=== PATIENT | male | born 1945 | race Caucasian/White ===

== ENCOUNTER 2016-04-22 12:31 | Outpatient (CLI) | payer MEDICARE, BC | END 2016-04-22 12:32 | disposition home or self-care (01) | DX: R50.9 Fever, unspecified (principal) ==

== ENCOUNTER 2016-11-27 10:15 | Outpatient (CLI) | payer MEDICARE, BC | END 2016-11-27 10:16 | disposition home or self-care (01) | LOC: SC 10:15 | PROVIDERS: ATTEND Nurse Practitioner Family | DX: G47.10 Hypersomnia, unspecified (principal); G47.8 Other sleep disorders; R06.83 Snoring | CPT/HCPCS: 99215; G0463; 99212 ==

== ENCOUNTER 2017-01-07 19:24 | Outpatient (CLI) | payer MEDICARE, BC | END 2017-01-07 19:25 | disposition home or self-care (01) | LOC: SC 19:24 | PROVIDERS: ATTEND Internal Medicine Pulmonary Disease | DX: G47.33 Obstructive sleep apnea (adult) (pediatric) (principal); G47.61 Periodic limb movement disorder; Z68.26 Body mass index [BMI] 26.0-26.9, adult | CPT/HCPCS: 95810 ==

== ENCOUNTER 2017-11-07 08:00 | Outpatient (CLI) | payer MEDICARE, BC ==
[2017-11-07 13:01] LABS: BASOPHILS # (AUTO) 0.1 10^3/uL (0.0-0.1); BASOPHILS % (AUTO) 0.9 %; EOSINOPHILS # (AUTO) 0.2 10^3/uL (0.0-0.7); EOSINOPHILS % (AUTO) 4.1 %; HGB - HEMOGLOBIN 13.9 g/dL (14.0-18.0); LYMPHOCYTES # (AUTO) 1.4 10^3/uL (1.5-3.5); LYMPHOCYTES % (AUTO) 25.1 %; MEAN CORPUSCULAR HEMOGLOBIN 29.8 pg (27.0-31.0); MEAN CORPUSCULAR HGB CONC 33.6 g/dL (32.0-36.0); MEAN CORPUSCULAR VOLUME 88.8 fL (80.0-94.0); MEAN PLATELET VOLUME 8.6 fL (7.4-11.4); MONOCYTES # (AUTO) 0.7 10^3/uL (0.0-1.0); MONOCYTES % (AUTO) 11.9 %; NEUTROPHILS # (AUTO) 3.2 10^3/uL (1.5-6.6); PLT - PLATELET COUNT 245 10^3/uL (130-450); RED BLOOD COUNT 4.66 10^6/uL (4.70-6.10); RED CELL DISTRIBUTION WIDTH 14.3 % (12.0-15.0); WHITE BLOOD COUNT 5.5 x10^3/uL (4.8-10.8)
[2017-11-07 14:07] LABS: ALBUMIN/GLOBULIN RATIO 1.3 (1.0-2.2); ALKALINE PHOSPHATASE 51 IU/L (42-121); ALT ALANINE AMINOTRANSFERASE 21 IU/L (10-60); AST ASPARTATE AMINOTRANSFERASE 26 IU/L (10-42); BILIRUBIN,TOTAL 0.9 mg/dL (0.2-1.0); BUN - BLOOD UREA NITROGEN 20 mg/dL (6-20); CALCIUM 9.1 mg/dL (8.5-10.3); CARBON DIOXIDE - CO2 28 mmol/L (21-32); CHLORIDE 105 mmol/L (101-111); CHOL/HDL RATIO 3.6 (<5.0); CHOLESTEROL 211 mg/dL; CREATININE 1.1 mg/dL (0.6-1.2); GFR - MDRD 66 (>89); GLUCOSE 91 mg/dL (70-100); HDL CHOLESTEROL 59 mg/dL; LDL CHOLESTEROL,CALCULATED 136 mg/dL; LDL/HDL RATIO 2.3 (<3.6); SODIUM 139 mmol/L (135-145); VLDL CHOLESTEROL 16 mg/dL
== END 2017-11-07 08:01 | disposition home or self-care (01) ==
LOC: LAB.WCP 08:00
PROVIDERS: ATTEND Family Medicine
DX: I10 Essential (primary) hypertension (principal); Z12.5 Encounter for screening for malignant neoplasm of prostate
CPT/HCPCS: 36415; 80053; 80061; 84443; 85025; G0103; 83721; 84153

== ENCOUNTER 2018-09-03 14:22 | Emergency (ER) | payer MEDICARE, BC ==
[2018-09-03 15:59] LABS: BILIRUBIN,URINE NEGATIVE (NEGATIVE); GLUCOSE, URINE (UA) NEGATIVE (NEGATIVE); KETONES,URINE (UA) NEGATIVE (NEGATIVE); LEUKOCYTE ESTERASE, URINE NEGATIVE (NEGATIVE); NITRITE,URINE NEGATIVE (NEGATIVE); OCCULT BLOOD,URINE NEGATIVE (NEGATIVE); PROTEIN,URINE NEGATIVE (NEGATIVE); UROBILINOGEN,URINE 0.2 (NORMAL) E.U./dL (NORMAL)
[2018-09-03 16:00] LABS: CLARITY,URINE CLEAR (CLEAR)
--- NOTE | 2018-09-03 16:00 | ED Physician Documentation ---
PD HPI MALE - Stated complaint Stated Complaint: MALE - Chief complaint Chief Complaint: General - History obtained from History obtained from: Patient - History of Present Illness Timing - onset: How many days ago (4) Timing - duration: Days (4) Timing - details: Still present Associated symptoms: Testiclar pain PD HPI MALE CONTRIB FACTORS: Sexually active Similar symptoms before: Has not had sx before - Additional information Additional information: The patient is a 72-year-old male who presents with left testicular pain and swelling that started 4 days ago and has persisted unchanged since that time. He denies any traumatic injury. He denies fever, dysuria, abdominal pain, nausea or vomiting. He denies history of similar symptoms in the past. He is S/P vasectomy, and is monogamous with his . Review of Systems Constitutional: denies: Fever Nose: denies: Congestion Throat: denies: Sore throat Cardiac: denies: Chest pain / pressure Respiratory: denies: Dyspnea, Cough GI: denies: Abdominal Pain, Nausea, Vomiting : reports: Testicular pain. denies: Dysuria, Discharge Musculoskeletal: denies: Extremity pain Neurologic: denies: Focal weakness, Numbness, Headache PD PAST MEDICAL HISTORY - Past Medical History Past Medical History: Yes Cardiovascular: Hypertension Respiratory: None Neuro: None Endocrine/Autoimmune: None GI: None : None HEENT: None Psych: None Musculoskeletal: None Derm: None - Past Surgical History Past Surgical History: No - Present Medications Home Medications: Ambulatory Orders Medication Instructions Recorded Confirmed Cyclobenzaprine [Flexeril] 10 mg PO TID PRN #20 tablet 02/10/14 Ibuprofen [Motrin] 800 mg PO Q8H PRN #30 tablet 02/10/14 Lisinopril [Zestril] 40 mg PO DAILY 02/10/14 02/10/14 Oxycodone HCl/Acetaminophen 1 - 2 each PO Q6H PRN #14 tablet 02/10/14 [Percocet 5-325 mg Tablet] Sertraline [Zoloft] 25 mg PO DAILY 02/10/14 02/10/14 - Allergies Allergies/Adverse Reactions: Allergies Allergy/AdvReac Type Severity Reaction Status Date / Time Tetanus Vaccines and Toxoid Allergy Edema Verified 09/03/18 14:56 [Tetanus Vaccines & Toxoid] - Social History Does the pt smoke?: No Smoking Status: Former smoker Does the pt drink ETOH?: Yes ETOH Use: Wine, Liquor Does the pt have substance abuse?: No - Immunizations Immunizations are current?: No Immunizations: TDAP >10years/unknown - POLST Patient has POLST: No PD ED PE NORMAL - Vitals Vital signs reviewed: Yes (Borderline systolic hypertension.) - General General: Alert and oriented X 3, Well developed/nourished - HEENT HEENT: Atraumatic - Cardiac Cardiac: RRR - Respiratory Respiratory: No respiratory distress, Clear bilaterally - Abdomen Abdomen: Soft, Non tender - Male Male : Other (Left testicle lies higher than the right. There is tenderness to palpation, particularly at a knot on the posterior aspect. Right testicle is nontender.) - Back Back: No CVA TTP - Derm Derm: No rash - Neuro Neuro: Alert and oriented X 3, No motor deficit, Normal speech Results - Vitals Vitals: Vital Signs - 24 hr 09/03/18 09/03/18 14:51 18:46 Temperature 37 C 36.1 C L Heart Rate 74 48 L Respiratory 18 18 Rate Blood Pressure 144/73 H 140/73 H O2 Saturation 96 100 Oxygen O2 Source Room air - Labs Labs: Laboratory Tests 09/03/18 15:51 Urine Color YELLOW Urine Clarity CLEAR Urine pH 6.0 Ur Specific [place] <=1.005 Urine Protein NEGATIVE Urine Glucose (UA) NEGATIVE Urine Ketones NEGATIVE Urine Occult Blood NEGATIVE Urine Nitrite NEGATIVE Urine Bilirubin NEGATIVE Urine Urobilinogen 0.2 (NORMAL) Ur Leukocyte Esterase NEGATIVE Ur Microscopic Review NOT INDICATED Urine Culture Comments NOT INDICATED - Rads (name of study) Testicular U/S Radiology: Prelim report reviewed, EMP read contemporaneously, See rad report (1) No testicular mass or evidence of torsion. 2) Small bilateral hydroceles. 3) Borderline left varicocele.) PD MEDICAL DECISION MAKING - ED course Complexity details: reviewed results, re-evaluated patient, considered differential, d/w patient ED course: The patient's presentation is most consistent with left testicular varicocele. Testicular ultrasound reveals no evidence of testicular torsion. Epididymitis was considered, but is unlikely. I discussed with the patient the diagnosis, symptomatic treatment and outpatient follow-up, as well as potentially worrisome signs or symptoms that should prompt reevaluation in the emergency department. Departure - Departure Disposition: 01 Home, Self Care Clinical Impression: Varicocele present on ultrasound of scrotum Condition: Stable Instructions: ED Varicocele Follow-Up: Giselle Molina MD [Primary Care Provider] - Comments: Follow-up with your urologist as scheduled. Take the disc copy of your ultrasound when you go to the appointment. Return to the emergency department if you develop increasing pain or swelling of your testicle or scrotum, or otherwise worsening symptoms. Discharge Date/Time: 09/03/18 19:11
--- NOTE | 2018-09-03 18:30 | Ultrasound Report ---
Reason: left testicular pain and swelling. Procedure Date: 09/03/2018 Accession Number: [id number] / [id number] Procedure: US - Testicle w/Doppler Limited CPT Code: FULL RESULT: EXAM: SCROTAL ULTRASOUND WITH TESTICULAR DOPPLER EXAM DATE: 09/03/2018 04:31 PM. CLINICAL HISTORY: Left testicular pain and swelling. COMPARISON: None. TECHNIQUE: Real-time scanning was performed with static images obtained. Color-flow images were utilized. FINDINGS: Right: Testis: 3.9 x 1.8 x 2.9 cm. Normal size and echotexture. No mass, calcification, or abnormal blood flow. Epididymis: 6 x 0.4 x 1.2 cm. Heterogeneous in appearance. Hydrocele: Small Varicocele: None. Left: Testis: 3.6 x 2.0 x 2.8 cm. No solid mass. Blood flow appears normal. There is a small testicular cyst measuring 0.4 x 0.2 x 0.4 cm. Epididymis: 5 x 0.5 x 0.8 cm. Heterogeneous in appearance. Hydrocele: Small Varicocele: There are mildly prominent vessels in the left scrotum which measure 2.3 mm in diameter, increasing to 2.9 mm in diameter with Valsalva. IMPRESSION: 1. No testicular mass or evidence of torsion. 2. Small bilateral hydroceles. 3. Borderline left varicocele. RADIA
[2018-09-03 18:49] VITALS: BP 140/73
== END 2018-09-03 19:11 | disposition home or self-care (01) ==
LOC: ED 14:22
DX: I86.1 Scrotal varices (principal); N43.3 Hydrocele, unspecified; I10 Essential (primary) hypertension; Z87.891 Personal history of nicotine dependence
CPT/HCPCS: 76870; 81001; 81003; 87086; 93976; 99282; 99283

== ENCOUNTER 2018-10-01 11:05 | Outpatient (CLI) | payer MEDICARE, BC ==
[2018-10-01 19:07] LABS: BASOPHILS % (AUTO) 0.8 %; EOSINOPHILS # (AUTO) 0.1 10^3/uL (0.0-0.7); EOSINOPHILS % (AUTO) 2.5 %; HGB - HEMOGLOBIN 13.3 g/dL (14.0-18.0); LYMPHOCYTES # (AUTO) 1.2 10^3/uL (1.5-3.5); LYMPHOCYTES % (AUTO) 25.5 %; MEAN CORPUSCULAR HEMOGLOBIN 27.9 pg (27.0-31.0); MEAN CORPUSCULAR HGB CONC 31.1 g/dL (32.0-36.0); MEAN CORPUSCULAR VOLUME 89.9 fL (80.0-94.0); MEAN PLATELET VOLUME 10.9 fL (7.4-11.4); MONOCYTES # (AUTO) 0.6 10^3/uL (0.0-1.0); MONOCYTES % (AUTO) 12.8 %; NEUTROPHILS # (AUTO) 2.8 10^3/uL (1.5-6.6); NEUTROPHILS % (AUTO) 58.2 %; PLT - PLATELET COUNT 271 10^3/uL (130-450); RED BLOOD COUNT 4.76 10^6/uL (4.70-6.10); RED CELL DISTRIBUTION WIDTH 15.1 % (12.0-15.0); WHITE BLOOD COUNT 4.9 x10^3/uL (4.8-10.8)
[2018-10-01 19:34] LABS: ALBUMIN/GLOBULIN RATIO 1.5 (1.0-2.2); BILIRUBIN,TOTAL 0.5 mg/dL (0.2-1.0); CALCIUM 9.8 mg/dL (8.5-10.3); TOTAL PROTEIN 6.7 g/dL (6.7-8.2)
[2018-10-02 11:47] LABS: HEPATITIS B SURFACE ANTIGEN NON-REACTIVE (NON-REACTIVE); HEPATITIS C ANTIBODY NON-REACTIVE (NON-REACTIVE)
== END 2018-10-01 23:59 | disposition home or self-care (01) ==
LOC: LAB.WCP 11:05
PROVIDERS: ATTEND Physician Assistant
DX: K76.0 Fatty (change of) liver, not elsewhere classified (principal); I10 Essential (primary) hypertension
CPT/HCPCS: 36415; 80053; 85025; 86317; 86709; 86803; 87340

== ENCOUNTER 2018-10-16 12:45 | Outpatient (CLI) | payer MEDICARE, BC ==
--- NOTE | 2018-10-16 13:54 | SLEEP CARE CONSULTATION ---
Information from patient questionnaire entered by Carlyn oCok. I have reviewed and concur with the information entered by Carlyn Cook. This document represents the service I personally performed and the decisions made by me, Krista Gallegos, RN, MSN, JAIL KEEPER. History of Present Illness Previous diagnosis: Mild, Obstructive Sleep Apnea-Hypopnea Syndrome AHI: 7.9 Reason for CPAP/BiPAP follow up: annual (with oral appliance) HPI additional information: Patient was diagnosed with mild obstructive sleep apnea and chose to try an oral appliance for therapy. Initially it was hard to get used to using but the past year he has been using nightly. He has noted reduction of blood pressure by an average of 15 points. He has also noted less sleepiness symptoms as well. No change in medications except splitting dose and taking bid. He denies any tooth or jaw pain. He went to Dr Trena STINSON in [place], [place]. He uses a SomnoDent. He uses a splint to get jaw back in place but this is not easy. He has spoken to dentist with no other options discussed. However, patient has used gum and exercises that has assisted him to realign jaw in lesser time. He never made a follow up appointment here to check efficacy with a sleep study. Subjective Initial [place] Sleepiness Scale score: 14 Current [place] Sleepiness Scale score: 9 Allergies and Home Medications Known drug allergies: Yes (tetnus toxoid) Home medication list reviewed: Yes Allergy and home medication list: lisinopril 20mg tablet, po bid Felodipine - extended release 10mg tablet, 1 po qd multivitamin NEED DOSE/STRENGTH magnesium 400mg every other day Flonase nasal spray one spray each nostril am sidinifil prn Review of Systems Review of systems same as previous: No (He had a vaicocele repaired a month ago. ) Physical Exam Blood Pressure: 132/70 Heart Rate: 54 O2 Saturation: 98 Height: 178 ft 9.6 in Impression and Plan 1. Obstructive Sleep Apnea-Hypopnea Syndrome, mild but moderate supine, with good treatment compliance and good relief of sleepiness symptoms reported with his oral appliance ( mandibular advancement device). His snoring has also been reduced significantly as well. In addition he has also noted a significant decreased in blood pressure readings by 15 points. Thus he is advised to continue treatment as well as post oral appliance exercises to get his jaw back in alignment. To check efficacy of oral appliance device in reducing his AHI, I advised a polysomnography. He goes to a regular dentist as well who referred him to this dentist. Unfortunately, it was not covered by Medicare and patient paid out of pocket. Patient's apnea severity and rationale for treatment to reduce apnea, improve sleep quality and reduce cardiovascular and cerebrovascular events was reviewed. I also reviewed the benefit of controlling his apnea to his hypertension as he has noted benefit. Since his apnea is more severe in supine position as I showed him on is sleep study, he is advised to avoid supine sleep if unable to use oral appliance * Continue oral appliance * schedule polysomnography with oral appliance * Return for follow up after sleep study , or sooner if concerns arise I spent 100% of this 35 minute visit face to face with the patient with greater than 50% of this was spent time counseling the patient and coordination of care.
[2018-10-16 13:55] VITALS: BP 132/70
== END 2018-10-16 12:46 | disposition home or self-care (01) ==
LOC: SC 12:45
PROVIDERS: ATTEND Nurse Practitioner Family
DX: G47.33 Obstructive sleep apnea (adult) (pediatric) (principal)
CPT/HCPCS: 99214; G0463; 99212

== ENCOUNTER 2018-10-26 12:37 | Outpatient (CLI) | payer MEDICARE, BC ==
[2018-10-26] MEDS ORDERED: IOVERSOL 320 50 ML VIAL ONE (12:51)
[2018-10-26] MEDS ORDERED: IOVERSOL 320 100 ML VIAL IVP ONE ×2 (12:52→14:02)
[2018-10-26] MEDS ORDERED: IOVERSOL 320 50 ML VIAL PO ONE (14:02)
--- NOTE | 2018-10-28 09:58 | CT Report ---
Reason: GALLBLADDER MASS Procedure Date: 10/26/2018 Accession Number: [id number] / [id number] Procedure: CT - Abdomen/Pelvis W CPT Code: FULL RESULT: EXAM: CT ABDOMEN AND PELVIS EXAM DATE: 10/26/2018 01:59 PM. CLINICAL HISTORY: GALLBLADDER MASS. COMPARISONS: TESTICLE W/DOPPLER LIMITED 09/03/2018 4:31 PM CHEST ANGIO 02/10/2014 6:07 AM. TECHNIQUE: Routine helical CT imaging was performed through the abdomen and pelvis. IV contrast: OPTI 320 90ML. Enteric contrast: No. Reconstructions: Coronal and sagittal. In accordance with CT protocol optimization, one or more of the following dose reduction techniques were utilized for this exam: automated exposure control, adjustment of mA and/or KV based on patient size, or use of iterative reconstructive technique. FINDINGS: Lung Bases: Solid pulmonary nodule in the posterior basilar segment right lower lobe, series 3, axial image 5, measures 5 mm, unchanged. Liver: Normal. No masses. Gallbladder/Bile Ducts: Unremarkable. Spleen: Normal. Pancreas: Normal. Adrenal Glands: Normal. Kidneys: Normal. No masses or hydronephrosis. Peritoneal Cavity/Bowel: Colonic diverticulosis. The appendix is well visualized and normal. Pelvic Organs: Normal. The bladder and visualized pelvic organs are within normal limits. Vasculature: Duplicated inferior vena cava. Bones: No significant abnormality. Other: Small fat-containing umbilical hernia. IMPRESSION: 1. No gallbladder mass seen with CT. 2. Colonic diverticulosis. RADIA
== END 2018-10-26 12:38 | disposition home or self-care (01) ==
LOC: DI 12:37
PROVIDERS: ATTEND Physician Assistant
DX: K57.30 Diverticulosis of large intestine without perforation or abscess without bleeding (principal)
CPT/HCPCS: 74177; Q9967

== ENCOUNTER 2018-11-27 19:30 | Outpatient (CLI) | payer MEDICARE, BC | END 2018-11-27 19:31 | disposition home or self-care (01) | LOC: SC 19:30 | PROVIDERS: ATTEND Internal Medicine Pulmonary Disease | DX: G47.33 Obstructive sleep apnea (adult) (pediatric) (principal); G47.61 Periodic limb movement disorder | CPT/HCPCS: 95810 ==

== ENCOUNTER 2018-12-30 12:49 | Outpatient (CLI) | payer MEDICARE, BC ==
[2018-12-30 13:51] VITALS: BP 142/70
--- NOTE | 2018-12-30 13:51 | SLEEP CARE CONSULTATION ---
Information from patient questionnaire entered by Carlyn Cook. I have reviewed and concur with the information entered by Carlyn Cook. This document represents the service I personally performed and the decisions made by me, Krista Gallegos RN, MSN, POWER EQUIPMENT TECHNOLOGY INSTRUCTOR. History of Present Illness Initial [place] Sleepiness Scale score: 14 Current [place] Sleepiness Scale score: 9 Additional HPI information: WANG LANDRY returns for follow up of the recently performed polysomnography with oral appliance and informed of findings. I explained the pathophysiology behind obstructive sleep apnea. Conclusions reflected that his apnea is well controlled with his oral appliance but he does have increased apnea in supine sleep. Patient reports that he usually does not sleep on his back. Patient reports intermittent insomnia that is from waking to unknown reason or to use the bathroom and then has intermittent difficulty going back to sleep. He will stay in bed and eventually will look at clock and start thinking of things. If too long he will leave room and read until sleepy. Sleep Study - Polysomnography Polysomnography findings: The quality of the study is good. The patient had reduced sleep efficiency due to several prolonged awakenings after the sleep onset. The sleep architecture was relatively normal considering the first-night effect. Respiratory monitoring showed no significant sleep disordered breathing (AHI = 1.7) or hypoxia (vicky oxygen saturation of 90%). The few respiratory events occurred only during supine sleep (supine AHI = 10.1; non-supine = 0.00). Snore was light in intensity. There was moderate periodic leg movement of sleep not associated with sleep fragmentation. Cardiac rhythm was normal sinus rhythm without significant arrhythmia. No abnormal behavior (parasomnia) observed during the night. Allergies and Home Medications Known drug allergies: Yes (tetanus and toxoid) Home medication list reviewed: Yes (added %HTP otc bedtime and acyclovir prn / betamethazone ointment : exzema) Review of Systems Review of systems same as previous: Yes Physical Exam Blood Pressure: 142/70 Cuff size: long Heart Rate: 63 O2 Saturation: 97 Height: 5 ft 9.5 in Weight: 181 lb 12.8 oz Body Mass Index: 26.4 BMI Classification: Overweight Impression and Plan 1. Obstructive Sleep Apnea-Hypopnea Syndrome, mild, with lowest oxygen saturation of 90%, adequately controlled with the oral appliance. However, since he had some apnea noted on his back, he was advised to consider further adjustment of oral appliance if he finds himself sleeping on his back. Currently patient pleased with benefit of his oral appliance as his blood pressure has been reduced by 15 point average. The only negative part of his oral appliance is getting his jaw back in alignment. He is aware that he can transition to CPAP therapy if changes his mind on type of therapy. He can also consider positional therapy. 2. Insomnia, intermittent. - Patient will wake up intermittently and have difficulty returning to sleep. I explained how his current habit of staying in bed too long not sleeping will only increase frustration and alertness. He is instead to leave room in estimated 20 minutes or less and engage in quiet activity until sleepy. In addition, he is to cover the clock as generally knowing the time can increase anxiety about sleeping abiltiy and time left to sleep. If he is unable to sleep due to things on his mind, he is to write out concerns as a release and then read until sleepy. This process is to be repeated as often as necessary to associate the bed with sleep. If insomnia continues, then he is to reschedule a follow up appointment and complete a sleep diary for further evaluation. sleep diary if continues . 3. Periodic limb movement, moderate, that did not fragment patients sleep. Periodic limb movement of sleep (PLMS) is characterized by episodes of repetitive limb movements that occur during sleep and usually involve the lower limbs. The etiology is unknown but can be associated with restless leg syndrome (RLS), neuropathy, spinal cord diseases, kidney disease, rheumatological disorders, narcolepsy, obstructive sleep apnea, and REM sleep behavior disorder. Other factors that can increase PLMS and/or RLS are heredity and iron deficiency as reflected by a low serum ferritin level below 50 to 75mcg / L. Several medications can precipitate or aggravate PLMS such as selective serotonin re- uptake inhibitor antidepressants, tricyclic antidepressants, lithium, and dopa mine receptor antagonists with the exception of bupropion. Caffeine can also aggravate PLMS and should be avoided. Sleep hygiene methods can also improve sleep as well as lifestyle changes such as regular exercise. Patient notes increased leg leg movements if sits too long but have diminished significantly with stretches and use of magnesium. Patient was advised that no treatment is needed at this time. If symptoms increase, then further evaluation is indicated. * Continue oral appliance * If finds he is on his back more in sleep - consider further adjustment * sleep diary and follow up if continued insomnia. * Follow up with PCP if PLMS worsen. * Attempt to lose weight * Return for follow up in 1 year , or sooner if concerns arise I spent 100% of this 35 minute visit face to face with the patient with greater than 50% of this was spent time counseling the patient and coordination of care.
== END 2018-12-30 12:50 | disposition home or self-care (01) ==
LOC: SC 12:49
PROVIDERS: ATTEND Nurse Practitioner Family
DX: G47.33 Obstructive sleep apnea (adult) (pediatric) (principal); G47.00 Insomnia, unspecified; G47.61 Periodic limb movement disorder
CPT/HCPCS: 99214; G0463; 99212

== ENCOUNTER 2019-01-02 12:04 | Outpatient (CLI) | payer MEDICARE, BC | END 2019-01-02 12:05 | disposition home or self-care (01) | LOC: RT 12:04 | PROVIDERS: ATTEND Internal Medicine Gastroenterology | DX: I10 Essential (primary) hypertension (principal) | CPT/HCPCS: 93005 ==

== ENCOUNTER 2019-01-14 09:06 | Day surgery (SDC) | payer MEDICARE, BC ==
[2019-01-14] MEDS ORDERED: LACTATED RINGERS 1,000 ML IV ONE (09:16)
[2019-01-14] MEDS ORDERED: MIDAZOLAM 2 MG/2 ML VIAL IVP ONE (10:03)
[2019-01-14] MEDS ORDERED: fentaNYL 250 MCG/5 ML VIAL IVP ONE (10:03)
[2019-01-14 11:11] VITALS: BP 123/59
== END 2019-01-14 09:07 | disposition home or self-care (01) ==
LOC: SDS 09:06
PROVIDERS: ATTEND Internal Medicine Gastroenterology
PROC: 0DJD8ZZ Inspection of Lower Intestinal Tract, Via Natural or Artificial Opening Endoscopic (ICD-10-PCS; principal; 2019-01-14 10:30)
DX: R19.5 Other fecal abnormalities (principal); K57.30 Diverticulosis of large intestine without perforation or abscess without bleeding
CPT/HCPCS: 45378; J3010; J7120

== ENCOUNTER 2019-09-17 15:46 | Outpatient (CLI) | payer MEDICARE ==
--- NOTE | 2019-09-17 17:32 | XRAY Report ---
PROCEDURE: Clavicle LT INDICATIONS: LEFT CLAVICLE LT SHOULDER PAIN TECHNIQUE: 2 views of the clavicle were acquired. COMPARISON: None. FINDINGS: Bones: No fractures or dislocations. No suspicious bony lesions. Soft tissues: No suspicious soft tissue calcifications. IMPRESSION: No trauma found, source of pain is not seen. Reviewed by: Aniket Stark MD on 09/17/2019 5:31 PM PDT Approved by: Aniket Stark MD on 09/17/2019 5:31 PM PDT Station ID: [id number]
--- NOTE | 2019-09-17 17:33 | XRAY Report ---
PROCEDURE: Shoulder 2 View LT INDICATIONS: LEFT CLAVICLE LT SHOULDER PAIN TECHNIQUE: 2 views of the shoulder were acquired. COMPARISON: Clavicle plain film same day.. FINDINGS: Bones: No fractures or dislocations. No suspicious bony lesions. Visualized ribs appear intact. Soft tissues: No suspicious soft tissue calcifications. IMPRESSION: No trauma found. Reviewed by: Aniket Stark MD on 09/17/2019 5:32 PM PDT Approved by: Aniket Stark MD on 09/17/2019 5:32 PM PDT Station ID: [id number]
== END 2019-09-17 15:47 | disposition home or self-care (01) ==
LOC: DI 15:46
PROVIDERS: ATTEND Family Medicine
DX: M25.512 Pain in left shoulder (principal)

== ENCOUNTER 2019-11-10 08:49 | Outpatient (CLI) | payer MEDICARE ==
[2019-11-10 09:32] VITALS: BP 140/60
--- NOTE | 2019-11-10 09:32 | SLEEP CARE CONSULTATION ---
Information from patient questionnaire entered by Carlyn Cook. I have reviewed and concur with the information entered by Carlyn Cook. This document represents the service I personally performed and the decisions made by me, Krista Gallegos, RN, MSN, SURFACE ROOM SHOP OPTICIAN. History of Present Illness Service Date and Time: 11/10/2019 0849 Previous diagnosis: Mild, Obstructive Sleep Apnea-Hypopnea Syndrome AHI: 7.9 (in 2017) Reason for follow up: other (10 month with oral appliance) Prior sleep studies: Yes Year and Where: 2014, 2016 and 2019 - [facility] Type of Sleep Study: Polysomnography HPI additional information: He continues to use an oral appliance and feels more rested with use. The oral appliance is starting to irritate his gums. He saw his dentist and it was adjusted a year ago with no benefit. He also uses a bite block due to clenching his teeth. His choice for use of an oral appliance was due to concerns for 's sleep as he felt a CPAP would be too noisey due to her light sleep habits. Since then she has been put on a Trilogy to lung condition and sleeping much better. Thus he would now like to pursue a CPAP to control his apnea as the oral appliance is no longer comfortable. Thus, I will change his treatment to CPAP to see if this works better for him in comfort and relief of sleepiness symptoms. Currently he is more rested with oral appliance but shows mild fatigue by [place] of 13 and patient admits to dozing in front of computer. I explained how CPAP machine works with sample devices Respironics Dreamstation and ResMobiliBuy [id number] and what to expect when using the machine. Using CPAP every night in order to get used to it was emphasized. Patient advised to put CPAP mask on before getting into bed so as not to fall asleep without CPAP. To assist acclimation to CPAP use, it could also be used for a short time during day while reading or watching TV. The patient was instructed to call the CPAP supplier to discuss any mechanical problem that may occur. If the mask given is uncomfortable or is difficult to keep on through the night even with adjustment, contact the CPAP supplier as many will replace with another mask style if notified before 30 days. If snoring or perceives is not getting enough air or too much air from the machine, notify this office. [facility] patient education PAP tips. Patient counseled not drink alcohol less than 4 hours before bedtime as it can increase snoring and apnea. Patient was cautioned about risks of drowsy driving until sleepiness symptoms resolve. Patient denies drowsy driving. Sleep Study - Results Polysomnography/Home Sleep Study results: 2016 diagnostic sleep study: Sleep efficiency was slightly reduced due to a prolonged awakening in the second half of the night. Sleep architecture was relatively normal as well considering the first night effect. Respiratory monitoring showed mild obstructive sleep apnea (AHI of 7.9) associated with oxyhemoglobin desaturation and mild hypoxemia (vicky oxygen saturation of 84%) but not sleep fragmentation. The respiratory events occurred mainly during supine sleep (supine AHI = 26.7; non-supine AHI = 5.8). Snore was moderate to loud in intensity. There was severe periodic limb movement of sleep not associated with sleep fragmentation. Cardiac rhythm was normal sinus rhythm without significant arrhythmia. No abnormal behavior (parasomnia) observed during the night. Subjective Initial [place] Sleepiness Scale score: 14 (in 2015) Current [place] Sleepiness Scale score: 13 Allergies and Home Medications Known drug allergies: Yes Home medication list reviewed: Yes (same blood pressure medications) Review of Systems Review of systems same as previous: Yes Physical Exam Blood Pressure: 140/60 Cuff size: regular Heart Rate: 55 O2 Saturation: 98 Height: 5 ft 9 in Weight: 176 lb Body Mass Index: 25.9 BMI Classification: Overweight Impression and Plan 1. Obstructive Sleep Apnea-Hypopnea Syndrome, mild, currently treated with an oral appliance which has become uncomfortable to use despite adjustment. He is more rested with use of oral appliance but still has some daytime fatigue/ sleepiness symptoms. He would like to try CPAP now for treatment of his apnea. As mentioned above, the patient will be started on nasal autoCPAP therapy with pressure set at 4-15 cmH2O. A manual titration study will be completed if unable to find optimal treatment pressure with office adjustments. Compliance guidelines also reviewed. A copy of compliance guidelines will be given for reference at check out. Because the apnea is more severe supine, I instructed to avoid sleeping supine using pillow positioning if unable to use oral appliance until he obtains his CPAP. * Nasal auto CPAP therapy, pressure at 4-15 cm H2O. * Attempt to lose weight. * Avoid alcohol consumption near bedtime. * The patient is again cautioned about driving until sleepiness completely resolves. * Return one month after CPAP obtained. I will assess response to therapy and compliance at that time. Visit Type: In Office Time Spent with Patient (minutes): 32 Provider Statement: I spent 100% of the Face to Face Visit with the patient with greater than 50% spent counseling the patient and coordination of care.
== END 2019-11-10 08:50 | disposition home or self-care (01) ==
LOC: SC 08:49
PROVIDERS: ATTEND Nurse Practitioner Family
DX: G47.33 Obstructive sleep apnea (adult) (pediatric) (principal); E66.3 Overweight; Z68.25 Body mass index [BMI] 25.0-25.9, adult
CPT/HCPCS: 99214; G0463; 99212

== ENCOUNTER 2020-03-30 15:33 | Outpatient (CLI) | payer MEDICARE ==
[2020-03-30 18:09] LABS: BASOPHILS # (AUTO) 0.1 10^3/uL (0.0-0.1); BASOPHILS % (AUTO) 0.9 %; EOSINOPHILS # (AUTO) 0.1 10^3/uL (0.0-0.7); EOSINOPHILS % (AUTO) 1.4 %; HGB - HEMOGLOBIN 13.4 g/dL (14.0-18.0); LYMPHOCYTES # (AUTO) 1.5 10^3/uL (1.5-3.5); MEAN CORPUSCULAR HEMOGLOBIN 29.1 pg (27.0-31.0); MEAN CORPUSCULAR HGB CONC 31.8 g/dL (32.0-36.0); MEAN CORPUSCULAR VOLUME 91.5 fL (80.0-94.0); MEAN PLATELET VOLUME 10.6 fL (7.4-11.4); MONOCYTES # (AUTO) 0.5 10^3/uL (0.0-1.0); MONOCYTES % (AUTO) 9.5 %; NEUTROPHILS # (AUTO) 3.5 10^3/uL (1.5-6.6); PLT - PLATELET COUNT 284 10^3/uL (130-450); RED CELL DISTRIBUTION WIDTH 13.8 % (12.0-15.0); WHITE BLOOD COUNT 5.7 x10^3/uL (4.8-10.8)
[2020-03-30 19:08] LABS: ALBUMIN 4.1 g/dL (3.2-5.5); ALBUMIN/GLOBULIN RATIO 1.4 (1.0-2.2); ALKALINE PHOSPHATASE 49 IU/L (42-121); ALT ALANINE AMINOTRANSFERASE 20 IU/L (10-60); AST ASPARTATE AMINOTRANSFERASE 22 IU/L (10-42); BILIRUBIN,TOTAL 0.5 mg/dL (0.2-1.0); BUN - BLOOD UREA NITROGEN 21 mg/dL (6-20); CALCIUM 9.5 mg/dL (8.5-10.3); CARBON DIOXIDE - CO2 30 mmol/L (21-32); CHLORIDE 103 mmol/L (101-111); CHOL/HDL RATIO 3.6 (<5.0); CHOLESTEROL 237 mg/dL; CREATININE 1.1 mg/dL (0.6-1.2); GLUCOSE 102 mg/dL (70-100); HDL CHOLESTEROL 66 mg/dL; LDL CHOLESTEROL,CALCULATED 149 mg/dL; LDL/HDL RATIO 2.3 (<3.6); VLDL CHOLESTEROL 22 mg/dL
== END 2020-03-30 23:59 | disposition home or self-care (01) ==
LOC: LAB.WCP 15:33
PROVIDERS: ATTEND Family Medicine
DX: I10 Essential (primary) hypertension (principal)
CPT/HCPCS: 36415; 80053; 80061; 83721; 85025

== ENCOUNTER 2022-03-16 10:21 | Outpatient (CLI) | payer MEDICARE ==
[2022-03-16 10:41] LABS: BASOPHILS % (AUTO) 0.8 %; EOSINOPHILS # (AUTO) 0.2 10^3/uL (0.0-0.7); EOSINOPHILS % (AUTO) 3.1 %; HCT - HEMATOCRIT 44.3 % (42.0-52.0); HGB - HEMOGLOBIN 14.1 g/dL (14.0-18.0); LYMPHOCYTES # (AUTO) 1.6 10^3/uL (1.5-3.5); LYMPHOCYTES % (AUTO) 30.2 %; MEAN CORPUSCULAR HGB CONC 31.8 g/dL (32.0-36.0); MEAN CORPUSCULAR VOLUME 87.9 fL (80.0-94.0); MONOCYTES # (AUTO) 0.6 10^3/uL (0.0-1.0); MONOCYTES % (AUTO) 11.2 %; NEUTROPHILS # (AUTO) 2.8 10^3/uL (1.5-6.6); NEUTROPHILS % (AUTO) 54.3 %; PLT - PLATELET COUNT 255 10^3/uL (130-450); RED BLOOD COUNT 5.04 10^6/uL (4.70-6.10); RED CELL DISTRIBUTION WIDTH 13.8 % (12.0-15.0); WHITE BLOOD COUNT 5.2 x10^3/uL (4.8-10.8)
[2022-03-16 11:07] LABS: ALBUMIN/GLOBULIN RATIO 1.3 (1.0-2.2); ALKALINE PHOSPHATASE 49 IU/L (42-121); ALT ALANINE AMINOTRANSFERASE 20 IU/L (10-60); AST ASPARTATE AMINOTRANSFERASE 22 IU/L (10-42); BUN - BLOOD UREA NITROGEN 20 mg/dL (6-20); CALCIUM 9.3 mg/dL (8.5-10.3); CARBON DIOXIDE - CO2 29 mmol/L (21-32); CHLORIDE 101 mmol/L (101-111); CHOL/HDL RATIO 4.9 (<5.0); CHOLESTEROL 230 mg/dL; GFR - MDRD 72 (>89); GLUCOSE 102 mg/dL (70-100); HDL CHOLESTEROL 47 mg/dL; LDL CHOLESTEROL,CALCULATED 170 mg/dL; LDL/HDL RATIO 3.6 (<3.6); POTASSIUM 4.6 mmol/L (3.5-5.0); SODIUM 137 mmol/L (135-145); TOTAL PROTEIN 7.1 g/dL (6.7-8.2); TRIGLYCERIDES 66 mg/dL; VLDL CHOLESTEROL 13 mg/dL
== END 2022-03-16 10:22 | disposition home or self-care (01) ==
LOC: LAB 10:21
PROVIDERS: ATTEND Physician Assistant
DX: I10 Essential (primary) hypertension (principal); E78.5 Hyperlipidemia, unspecified; G25.81 Restless legs syndrome; R39.9 Unspecified symptoms and signs involving the genitourinary system
CPT/HCPCS: 36415; 80053; 80061; 82728; 83721; 84153; 85025

== ENCOUNTER 2022-10-26 15:21 | Outpatient (CLI) | payer MEDICARE ==
[2022-10-26 15:57] LABS: BUN - BLOOD UREA NITROGEN 17 mg/dL (6-20); CALCIUM 9.4 mg/dL (8.5-10.3); CARBON DIOXIDE - CO2 30 mmol/L (21-32); CHLORIDE 102 mmol/L (101-111); CHOL/HDL RATIO 2.3 (<5.0); CHOLESTEROL 119 mg/dL; CREATININE 1.1 mg/dL (0.6-1.3); GFR - MDRD 65 (>89); GLUCOSE 88 mg/dL (74-104); HDL CHOLESTEROL 51 mg/dL; LDL CHOLESTEROL,CALCULATED 47 mg/dL; LDL/HDL RATIO 0.9 (<3.6); POTASSIUM 3.8 mmol/L (3.5-4.5); SODIUM 136 mmol/L (135-145); TRIGLYCERIDES 104 mg/dL (48-352); URIC ACID 6.1 mg/dL (4.4-7.6); VLDL CHOLESTEROL 21 mg/dL
== END 2022-10-26 15:22 | disposition home or self-care (01) ==
LOC: LAB 15:21
PROVIDERS: ATTEND Physician Assistant
DX: E78.5 Hyperlipidemia, unspecified (principal); M25.473 Effusion, unspecified ankle
CPT/HCPCS: 36415; 80048; 80061; 83721; 84550

== ENCOUNTER 2023-03-22 09:06 | Outpatient (CLI) | payer MEDICARE ==
--- NOTE | 2023-03-22 09:54 | Sleep Patient Instructions ---
Sleep Center Visit Summary - Patient Visit Information Reason for Visit: Initial consultation - Patient Instructions Additional Instructions: You will continue with CPAP therapy with pressure set at 4-15 cmH2O. A supply prescription will be updated with your DME and I have added an order to replace your current machine. Please call us to schedule your compliance visit once you have your new CPAP. We encourage you to continue to try to lose weight. Please follow up with the sleep care office one month after obtaining new device. - Clinic Information Contact: [facility] [address] [place] [address] [email or web address] T: [phone]
--- NOTE | 2023-03-22 09:58 | SLEEP CARE CONSULTATION ---
Information from patient questionnaire entered by Winnie Roblero. I have reviewed and concur with the information entered by Winnie Roblero. This document represents the service I personally performed and the decisions made by me, Era Silver ARNP. History of Present Illness Service Date and Time: 03/22/2023 09 Reason for Visit: New patient, Previously diagnosed sleep apnea, Re-establish care Chief Complaint: reports: Other (UPDATE SUPPLIES) Usual bedtime: 11AM Time it takes to fall asleep: 5-10MIN 1-2 X MONTH DIFFICULT Snores at night: Yes Observed to quit breathing while asleep: Yes Sleeps alone due to snoring: No Number of times waking at night: 1-3 Reasons for waking at night: reports: Bathroom Toss, Turn, or Twitch while sleeping: Yes Recalls having dreams: Yes Usually gets out of bed at: 8AM Morning headache: No Sleepy or fatigued during the day: Yes Ever fallen asleep while driving: No Prior sleep studies: Yes Year and Where: 2014, 2016 and 2018 - [facility] Additional HPI information: WANG LANDRY was previously diagnosed to have mild, AHI 7.9, obstructive sleep apnea-hypopnea syndrome in 2017 at [facility] and comes in today to re-establish care for CPAP therapy. - Parasomnia Symptoms Ever been unable to move upon waking from sleep: No Walks in sleep: No Talks in sleep: No Ever acted out dreams in sleep: Yes Ever felt weak in the knees when startled or emotional: No Problems with memory or concentration: No CPAP Compliance Data - Data Reviewed with Patient Average duration of nightly device use: 7 hours 5 minutes Compliance rate %: 83.2 (161/185 days used) Current pressure setting (cmH2O): 4-15 (median 6.1, avg 8.2, max 13.9) Average residual AHI: 2.8 Average large leak: 38 secs Compliance data discussion: He as a Dreamstation that has not been replaced. He is using [employer] for his supplies. He is using a ResMed AirFit P30i, large cushion. He does not have a backup mask at this time. Subjective Patient concerns: reports: dry mouth, nose, throat (dry mouth occasionally). denies: aerophagia, mask discomfort, air blowing in eyes, mask leak noise, condensation in mask/hose, nasal congestion, epistaxis Observed to snore while using device: No Current pressure setting perceived as: comfortable On therapy, patient: reports: sleeping better, awakening more refreshed, being more awake and alert during the day, more rested overall, drowsiness while driving (occasional on long trips; no accidents or tuan drifting) Initial [place] Sleepiness Scale score: 14 (in 2015) Current [place] Sleepiness Scale score: 10 (03/22/23) Past Medical History Past Medical History: reports: Hypertension, Other (ECZAMA, PSORIASIS ) Social History The patient's occupation is a RE. Patient is and lives in [place]. Have you smoked in the past 12 months: No Cigarettes per day (20/pack): 10 Years of smokin Quit date: 1992 Smoking Pack Years: 12.5 Alcohol use: Yes Alcohol amount and frequency: 1-2 BEER DAILY Caffeine use: Yes Caffeine amount and frequency: 2-4 CUPS DAILY Family History Family history of sleep disordered breathing: Yes Family Hx Sleep Apnea: Father: Snoring, Grandparent: Snoring Allergies and Home Medications Known drug allergies: Yes ( LISTED) Drug allergies reviewed: Yes Home medication list reviewed: Yes (as listed) Allergy and home medication list: Allergies Tetanus Vaccines and Toxoid [Tetanus Vaccines & Toxoid] Allergy (Verified 03/21/23 10:45) Edema Home Medications Medication Instructions Recorded Confirmed Last Taken Type Lisinopril [Zestril] 20 mg PO BID 02/10/14 03/21/23 01/13/19 History Felodipine [Felodipine ER] 10 mg PO QPM 01/13/19 03/21/23 01/13/19 History Betamethasone Aug 0.05% Cream See Rx Instructions .ROUTE .COMPLEX 03/21/23 03/21/23 Unknown History [Diprolene AF 0.05% Cream] Gabapentin [Neurontin] See Rx Instructions .ROUTE .COMPLEX 03/21/23 03/21/23 Unknown History Rosuvastatin Calcium [Crestor] See Rx Instructions .ROUTE .COMPLEX 03/21/23 03/21/23 Unknown History Tazarotene See Rx Instructions .ROUTE .COMPLEX 03/21/23 03/21/23 Unknown History Review of Systems Cardiovascular: reports: high blood pressure Ear/Nose/Throat: reports: wisdom teeth removed Musculoskeletal: reports: muscle pain or cramping Immunologic: reports: sneezing, rash Physical Exam Vital signs obtained and entered by: BOGDAN GENAO Blood Pressure: 139/78 Cuff size: regular (left arm) Heart Rate: 64 O2 Saturation: 97 Height: 5 ft 9 in Weight: 180 lb 9.6 oz Body Mass Index: 26.6 BMI Classification: Overweight Heart: regular rate and rhythm, murmur Lungs: clear bilaterally Impression and Plan 1. Obstructive Sleep Apnea-Hypopnea Syndrome, mild, with good treatment compliance and good apnea control. On CPAP therapy, the patient has better sleep quality and is more rested overall. Patient states he has a DreamStation that they were supposed to replace but he has not heard from [facility] about any replacement. He is eligible for a new device since his last replacement was over 5 years ago. The patients CPAP is over 5 years old and of reasonable use. Thus, the CPAP will be updated. The new CPAPs also have a better humidity system which could assist control of patients dryness symptoms. A DWO prescription will be made. Compliance guidelines for new device and follow up discussed. Patient's apnea severity and rationale for treatment to reduce apnea, improve sleep quality and reduce cardiovascular and cerebrovascular events was reviewed. I also reviewed the benefit of consistent device use of CPAP for hypertension. 2. Overweight, unspecified. Currently patients BMI is 26.6. Obesity increases the risk of apnea, CPAP pressure requirements and overall health risks especially cardiovascular and diabetes. Thus patient is advised maintain a healthy weight. * Continue auto CPAP pressure at 4-15 cmH2O * Update machine * Update supply prescription * Notify me if snoring with mask or feeling that the pressure is too much or too little * Attempt to lose weight * Call this office if any problems using CPAP * Return for follow up one month after obtaining new CPAP, or sooner if concerns arise Counseling Topics: Weight loss health impact Prescriptions: Auto CPAP, Device supplies Follow up with Sleep Care in: other (compliance visit) Visit Type: In Office Time Spent with Patient (minutes): 33 Provider Statement: I spent 100% of the Face to Face Visit with the patient with greater than 50% spent counseling the patient and coordination of care.
[2023-03-22 10:04] VITALS: BP 139/78; O2SAT 97
== END 2023-03-22 09:07 | disposition home or self-care (01) ==
LOC: SC 09:06
PROVIDERS: ATTEND Nurse Practitioner Family
DX: G47.33 Obstructive sleep apnea (adult) (pediatric) (principal); E66.3 Overweight; Z68.26 Body mass index [BMI] 26.0-26.9, adult
CPT/HCPCS: 99203; G0463; 99212

== ENCOUNTER 2023-05-25 14:32 | Outpatient (CLI) | payer MEDICARE ==
--- NOTE | 2023-05-25 14:55 | SLEEP CARE CONSULTATION ---
Information from patient questionnaire entered by Leny Roblero. I have reviewed and concur with the information entered by Leny Roblero. This document represents the service I personally performed and the decisions made by me, Era Silver ARNP. History of Present Illness Service Date and Time: 05/25/2023 1440 Previous diagnosis: Mild, Obstructive Sleep Apnea-Hypopnea Syndrome AHI: 7.9 (in 2016) Reason for follow up: first compliance after device update Equipment type: CPAP (RESMED NEED MACHINE) Equipment obtained from: [address] [address] (getting supplies) Mask style: Nasal pillows Mask brand: Resmed Backup mask available: Yes Last cushion change: rotating through 3 cushions; 1 month Prior sleep studies: Yes Year and Where: 2014, 2016 and 2018 - [facility] HPI additional information: WANG LANDRY was diagnosed to have mild, AHI 7.9, obstructive sleep apnea- hypopnea syndrome and returned today for CPAP therapy first compliance after updating device follow-up. Sleep Study - Results Prior sleep studies: Yes Year and Where: 2014, 2016 and 2018 - [facility] Compliance Data - Data Reviewed with Patient Average duration of nightly device use: 6 hours 44 minutes Compliance rate %: 97 (/30 days used) Current pressure setting (cmH2O): 4-15 (median 6.3, avg 8.8, max 10.4) Average residual AHI: 3.5 Central apnea: 2.3 Obstructive apnea: 0.9 Hypopnea: 0.2 Average large leak: 1 L/min Subjective Patient concerns: denies: aerophagia, mask discomfort, air blowing in eyes, mask leak noise, condensation in mask/hose, nasal congestion, dry mouth, nose, throat, epistaxis Observed to snore while using device: No Current pressure setting perceived as: comfortable On therapy, patient: reports: sleeping better, awakening more refreshed, being more awake and alert during the day, more rested overall. denies: drowsiness while driving Initial [place] Sleepiness Scale score: 14 (in 2014) Current [place] Sleepiness Scale score: 10 (05/25/23) Allergies and Home Medications Known drug allergies: Yes (as listed) Drug allergies reviewed: Yes Home medication list reviewed: Yes (no changes) Allergy and home medication list: Allergies Tetanus Vaccines and Toxoid [Tetanus Vaccines & Toxoid] Allergy (Verified 05/23/23 11:23) Edema Review of Systems Review of systems same as previous: Yes (no change) Physical Exam Vital signs obtained and entered by: LENY Juan MA Blood Pressure: 129/68 (right arm) Cuff size: regular Heart Rate: 61 O2 Saturation: 97 Height: 5 ft 9 in Weight: 177 lb Body Mass Index: 26.1 BMI Classification: Overweight Impression and Plan 1. Obstructive Sleep Apnea-Hypopnea Syndrome, mild, with good treatment compliance and good apnea control. On CPAP therapy, the patient has better sleep quality and is more rested overall. He states he occasionally feels like the pressure might be a little high when he has taken the mask off to get up to the restroom at night. He feels is comfortable when it first starts at night. Occasionally he will note later in the night that the pressure seems a little high. I will adjust the pressure to 8-9 cmH2O. He will continue using the ramp feature with the starting pressure at 4 cm H2O. He will let me know if the pressure change is uncomfortable. Patient's apnea severity and rationale for treatment to reduce apnea, improve sleep quality and reduce cardiovascular and cerebrovascular events was reviewed. I also reviewed the benefit of consistent device use of CPAP for hypertension. 2. Overweight, unspecified. Currently patients BMI is 26.1. Obesity increases the risk of apnea, CPAP pressure requirements and overall health risks especially cardiovascular and diabetes. Thus patient is advised to maintain a healthy weight. * Change auto CPAP pressure to 8-9 cmH2O * Notify me if snoring with mask or feeling that the pressure is too much or too little * Maintain a healthy weight * Call this office if any problems using CPAP * Return for follow up in 12 months, or sooner if concerns arise Counseling Topics: Spare mask, Weight loss health impact Visit Type: In Office Time Spent with Patient (minutes): 20 Provider Statement: I spent 100% of the Face to Face Visit with the patient with greater than 50% spent counseling the patient and coordination of care.
--- NOTE | 2023-05-25 14:55 | Sleep Patient Instructions ---
Sleep Center Visit Summary - Patient Visit Information Reason for Visit: First compliance with new PAP machine - Patient Instructions Additional Instructions: You were here for follow up of CPAP therapy. You will be continued on CPAP therapy with pressure at 8-9 cmH2O. Please let us know if the pressure change is uncomfortable and we can make further adjustments of the pressure. You should follow up with sleep care in 12 months. You may contact us sooner for any questions or concerns. - Clinic Information Contact: [facility] [address] [place] [id number] [email or web address] T: [phone]
[2023-05-25 14:56] VITALS: BP 129/68; O2SAT 97
== END 2023-05-25 14:33 | disposition home or self-care (01) ==
LOC: SC 14:32
PROVIDERS: ATTEND Nurse Practitioner Family
DX: G47.33 Obstructive sleep apnea (adult) (pediatric) (principal); E66.3 Overweight; Z68.26 Body mass index [BMI] 26.0-26.9, adult
CPT/HCPCS: 99213; G0463; 99212

== ENCOUNTER 2023-06-20 15:36 | Outpatient (CLI) | payer MEDICARE ==
--- NOTE | 2023-06-20 20:25 | XRAY Report ---
PROCEDURE: Foot 3+V LT INDICATIONS: FOOT PAIN, LEFT TECHNIQUE: 3 views of the foot were acquired. COMPARISON: None. FINDINGS: Bones: No fractures or dislocations. Mild degenerative changes. No suspicious bony lesions. Soft tissues: No tibiotalar joint effusion. Achilles tendon appears normal. IMPRESSION: No acute bony abnormality. Reviewed by: Khoi Atkins MD on 06/20/2023 8:24 PM PDT Approved by: Khoi Atkins MD on 06/20/2023 8:24 PM PDT Station ID: [id number]
== END 2023-06-20 15:37 | disposition home or self-care (01) ==
LOC: DI.N 15:36
PROVIDERS: ATTEND Family Medicine
DX: M79.672 Pain in left foot (principal)